=== PATIENT | male | born 1965 | race Caucasian/White ===

== ENCOUNTER 2019-07-16 12:32 | Outpatient (CLI) | payer BC ==
--- NOTE | 2019-07-16 13:02 | CT ---
Head CT without contrast 07/16/2019: Comparison: None HISTORY: Headache, hypertension TECHNIQUE: Axial CT imaging at 5 mm intervals from vertex through skull base without contrast FINDINGS: Imaged paranasal sinuses and mastoid air cells well-aerated. No displaced calvarial fractur e. No intracranial hemorrhage, midline shift, mass effect, or ventricular enlargement. IMPRESSION: No acute findings.
== END 2019-07-16 12:33 | disposition home or self-care (01) ==
LOC: SCSCT 12:32
PROVIDERS: ATTEND Family Medicine
DX: R51 Headache (principal)
CPT/HCPCS: 70450